=== PATIENT | male | born 1990 | race Caucasian/White ===

== ENCOUNTER 2019-10-19 17:56 | Emergency (ER) | payer OTHER ==
[~2019-10-19] VITALS: Ht 190.5 cm; Wt 127.0 kg
[2019-10-19 18:07] VITALS: BP 144/91
--- NOTE | 2019-10-19 19:24 | NUR ---
PT AMBULATED TO ER BED 04
--- NOTE | 2019-10-19 19:40 | NUR ---
29 Y/O MALE WORSENING COUGH X 3-4 DAYS. WAS PRESCRIBED AZITHROMYOCIN BUT PT STATES IT HASNT HELPED. LUNG OSUNDS CLEAR UPPER BILAT LOBES, DIMINSHED ADN CRACKLES ON RIGHT LOWER LOBE. PRODUCTIVE COUGH PRESENT. NO SOB, NO USE OF ACCESSORY MUSCLE. A & O X4. AIRWAY PATENT AND CLEAR. NO RESP DISTRESS NOTED. PT ALSO STATES HES BEEN HAVING BLOOD TINGE SPUTUM. NKA. PMH: ASTHMA.
--- NOTE | 2019-10-19 19:48 | NUR ---
FLU SWAB COLLECTED AND SENT TO LAB.
[2019-10-19 19:50] LABS: BASOPHILS # (AUTO) 0.1 K/uL (0.00-0.22); BASOPHILS % (AUTO) 0.8 % (0.0-2.0); EOSINOPHILS # (AUTO) 0.4 K/uL (0-0.4); EOSINOPHILS % (AUTO) 4.5 % (0.0-4.0); HEMATOCRIT 47.4 % (36-52); HEMOGLOBIN 16.2 g/dL (12.0-18.0); LYMPHOCYTES # (AUTO) 2.3 K/uL (2.0-11.5); MEAN CORPUSCULAR HEMOGLOBIN 29 pg (27-31); MEAN CORPUSCULAR HGB CONC 34 g/dL (33-37); MEAN CORPUSCULAR VOLUME 84.6 fL (80-94); MONOCYTES # (AUTO) 0.8 K/uL (0.8-1.0); MONOCYTES % (AUTO) 9.8 % (1.7-9.3); NEUTROPHILS # (AUTO) 4.9 K/uL (1.8-7.7); NEUTROPHILS % (AUTO) 57.9 % (42.2-75.2); PLATELET COUNT (AUTO) 296 K/uL (140-450); RED BLOOD CELL COUNT(AUTO) 5.61 MIL/uL (4.20-6.10); RED CELL DISTRIBUTION WIDTH 13.4 % (11.6-13.7); WHITE BLOOD COUNT (AUTO) 8.4 K/uL (4.8-10.8)
[2019-10-19] MEDS ORDERED: NACL 0.9% 1,000 ML IV ONE ×2 (20:10→20:40)
[2019-10-19 20:17] LABS: ALBUMIN 3.6 g/dL (3.4-5.0); ANION GAP 11.5 (8-16); CARBON DIOXIDE 28.9 mmol/L (21-32); CREATININE 1.3 mg/dL (0.6-1.3); POTASSIUM 4.4 mmol/L (3.5-5.1); TOTAL BILIRUBIN 0.4 mg/dL (0.0-1.0)
[2019-10-19] MEDS ORDERED: ALBUTEROL SULFATE/IPRATROPIU 3 ML SOL IH ONE (20:20)
--- NOTE | 2019-10-19 20:39 | NUR ---
Respiratory Therapist at bedside for respiratory intervention.
--- NOTE | 2019-10-19 20:41 | NUR ---
RT AT BEDSIDE
[2019-10-19 21:30] VITALS: BP 144/91
--- NOTE | 2019-10-19 21:30 | NUR ---
Patient discharged with v/s stable. Written and verbal after care instructions given and explained. Patient alert, oriented and verbalized understanding of instructions. Ambulatory with steady gait. All questions addressed prior to discharge. ID band removed. Patient advised to follow up with PMD. Rx of MEDROL, AUGMENTIN, PROMETHAZINE, CLARITHROMYACIN given. Patient educated on indication of medication including possible reaction and side effects. Opportunity to ask questions provided and answered.
--- NOTE | 2019-10-20 12:40 | NUR ---
Late entry. Confirmed with RN that 0.9 NS IV completed at Addendum: 10/20/19 at 1240 by [email or web address] done at 2130
== END 2019-10-19 21:30 | disposition home or self-care (01) ==
LOC: MED 17:56
DX: J18.9 Pneumonia, unspecified organism (principal); J40 Bronchitis, not specified as acute or chronic; J45.909 Unspecified asthma, uncomplicated
CPT/HCPCS: 36415; 71046; 80053; 85025; 87804; 99284; J7030